=== PATIENT | male | born 1935 | race Caucasian/White ===

== ENCOUNTER 2016-11-22 01:56 | Emergency (ER) | payer OTHER, MEDICARE ==
[~2016-11-22] VITALS: Ht 175.3 cm; Wt 101.9 kg
[~2016-11-22 01:56] MED LIST: APRISO0.375 GM PO; ARICEPT10 MG PO; AVODART0.5 MG PO; CARVEDILOL3.125 MG PO; DIOVAN HCT 3201 EACH PO; FLOMAX0.4 MG PO; MESALAMINE4 GM/60 ML RC; PLAVIX75 MG PO; PRILOSEC10 M1 PO; PRISTIQ50 MG PO; SIMVASTATIN40 MG PO; TRICOR145 MG PO; ULTRAM50 MG PO
[2016-11-22 03:44] VITALS: BP 142/84
== END 2016-11-22 03:45 | disposition home or self-care (01) ==
LOC: EME → EDBD 01:56 → EME 03:45
PROC: 2Y41X5Z Packing of Nasal Region using Packing Material (ICD-10-PCS; principal; 2016-11-22)
DX: R04.0 Epistaxis (principal); I10 Essential (primary) hypertension; E78.5 Hyperlipidemia, unspecified; Z86.73 Personal history of transient ischemic attack (TIA), and cerebral infarction without residual deficits; Z88.0 Allergy status to penicillin; Z88.1 Allergy status to other antibiotic agents; Z87.891 Personal history of nicotine dependence
CPT/HCPCS: 99281; 99284

== ENCOUNTER 2017-11-17 23:31 | Emergency (ER) | payer OTHER, MEDICARE ==
[~2017-11-17] VITALS: Ht 175.3 cm; Wt 116.0 kg
[2017-11-18 00:14] LABS: BASOPHIL (%) 0.4 % (0-1); EOSINOPHIL (%) 4.4 % (0-5); EOSINOPHIL COUNT 0.5 K/uL (0-0.3); HEMATOCRIT 30.9 % (38.0-50.0); HEMOGLOBIN 9.8 G/DL (12.5-16.6); IMMATURE GRANULOCYTE (%) 0.5 % (0.0-0.7); LYMPHOCYTE (%) 17.3 % (15-42); LYMPHOCYTE COUNT 1.8 K/uL (1.0-2.8); MCH 27.4 PG (29.0-34.0); MCHC 31.7 G/DL (30.0-36.0); MCV 86.3 FL (86-99); MONOCYTE (%) 10.9 % (3-12); MONOCYTE COUNT 1.2 K/uL (0-0.8); NEUTROPHIL (%) 66.5 % (45-76); PLATELET COUNT 334 K/uL (156-360); RBC DIS.WIDTH-CV 14.2 % (11.8-14.6); RBC DIS.WIDTH-SD 45.1 % (39-53); RED BLOOD COUNT 3.58 M/uL (4.00-5.50); WHITE BLOOD COUNT 10.6 K/uL (4.1-10.2)
[2017-11-18 00:21] LABS: PTT 37.8 SEC (25-37)
[2017-11-18 00:23] LABS: ALBUMIN 3.5 g/dL (3.2-4.8); CHLORIDE 109 mEq/L (99-109); POTASSIUM 4.7 mEq/L (3.7-5.4); SODIUM 142 mEq/L (136-147)
[2017-11-18 00:25] LABS: GLUCOSE 141 mg/dL (70-99); TOTAL PROTEIN 6.6 g/dL (6.4-8.3)
[2017-11-18 00:27] LABS: TOTAL BILIRUBIN 0.3 mg/dL (0.0-1.0)
[2017-11-18 00:29] LABS: ALKALINE PHOSPHATASE 207 IU/L (3-129); CREATININE 1.5 mg/dL (0.6-1.3); GFR ESTIMATE (CALCULATED) 48 mL/min/ (58.99-99999)
[2017-11-18 00:30] LABS: UREA NITROGEN (BUN) 35 mg/dL (9-23)
[2017-11-18 00:31] LABS: AST (GOT) 28 IU/L (2-34)
[2017-11-18 00:32] LABS: ALT (GPT) 29 IU/L (3-49)
[2017-11-18] MEDS ORDERED: DOXYCYCLINE HY100 MG PO (01:26)
[2017-11-18 02:08] VITALS: BP 165/43
== END 2017-11-18 02:10 ==
LOC: EME → EDBD 23:31 → EME 11-18 02:10
PROVIDERS: Emergency Medicine
DX: R04.0 Epistaxis (principal); L03.116 Cellulitis of left lower limb; L03.115 Cellulitis of right lower limb; Z79.02 Long term (current) use of antithrombotics/antiplatelets; Z79.82 Long term (current) use of aspirin; E78.5 Hyperlipidemia, unspecified; F32.9 Major depressive disorder, single episode, unspecified; I11.0 Hypertensive heart disease with heart failure; I50.9 Heart failure, unspecified; F41.9 Anxiety disorder, unspecified; F03.90 Unspecified dementia, unspecified severity, without behavioral disturbance, psychotic disturbance, mood disturbance, and anxiety; Z86.73 Personal history of transient ischemic attack (TIA), and cerebral infarction without residual deficits; K21.9 Gastro-esophageal reflux disease without esophagitis; Z88.0 Allergy status to penicillin; Z87.891 Personal history of nicotine dependence
CPT/HCPCS: 71046; 80053; 83880; 85025; 85610; 85730; 93005; 99281; 99285